=== PATIENT | female | born 1970 | race Caucasian/White ===

== ENCOUNTER 2025-01-07 13:32 | Outpatient (CLI) | payer OTHER, MEDICAID, SELFPAY ==
--- OUTSIDE RECORDS SUMMARY | 2025-01-07 13:37 | XMS_ITS | Data Portability ---
Author Organization [facility] Pasquale MCHUGH Address [address] [facility] [place] [address] Assessment No assessment recorded. Plan of Treatment Reminders Order Date Submit Date Provider Last Modified By Organization Details Last Modified Time Details Appointments None recorded. Lab CMP, serum or plasma 2016 017 [facility], [facility] [place] [facility] [place], [address], [place], [address], 7 12:05:36 lipid panel, serum 2016 017 [facility], [address], [address], [place], [address], 7 12:05:38 CBC 2016 017 [facility], [address], [address], [place], [address], 7 12:05:34 TSH, ultra-sensi tive, serum 2016 017 [facility], [address], [address], [place], [address], 7 12:05:37 HIV 1+2 AB + HIV 1 p24 Ag, qualitative immunoassay , serum 2016 017 [facility], [address], [address], [place], [address], 7 12:03:57 estradiol, serum 2015 016 [facility], [address], [address], [place], [address], 6 06:12:39 Referral behavioral health referral - Stress disorder 2016 017 [email or web address] Gala Santacruz RN-Bc, [address] [place], [address], 7 08:24:34 behavioral health referral - Stress disorder 2015 016 [email or web address] Santacruz RN-Sulaiman, [address] [place], [address], 6 11:12:56 Procedures None recorded. Surgeries None recorded. Imaging MAMMO, screening, bilateral 2015 016 [facility] ([facility]), [address] [place], [address], 6 09:35:35 Medication Orders clonazepam 0.5 mg tablet 2016 017 [address] [id number], [address] [place], [place], [id number], 7 12:02:37 clonazepam 0.5 mg tablet 2015 016 [address] [id number], [address] [place], [place], [id number], 6 12:41:58 Ativan 0.5 mg tablet 2015 016 [email or web address] [id number], [address] [place], [place], [id number], 6 18:48:39 Patient TargetsNo targets recorded. Patient InstructionsNo instructions recorded. Reason for Referral Behavioral Health Referral f or Feeling stressed Stress disorder Referring Physician: Beatriz Mg, Internal Medicine, Encounter Date: 07/09/2016 Behavioral Health Referral f or Mood swings Severe mood swings Stress disorder Referring Physician: Beatriz Mg Internal Medicine, Encounter Date: 01/02/2017 Results Created Date Observation Date Name Description Value Unit Range Abnormal Flag Note LastModifiedBy Organization Detail LastModifiedTime 05/22/20 16 05/23/2016 estra diol, serum estradiol 50.1 pg/mL ADULT FEMAL E: FOLLI CULAR PHASE 12.5 - 166.0 OVULA TION PHASE 85.8 - 498.0 LUTEA L PHASE 43.8 - 211.0 POSTM ENOPA USAL <6.0 - 54.7 PREGN SUSAN 1ST TRIME STER 215.0 - >4300 .0 GIRLS (1-10 YEARS ) 6.0 - 27.0 KOBY ECLIA METHO DOLOG Y Not Available [facility] ([facility]) [address], [place], [address], 05/23/2016 06:12:39 03/26/20 17 04/05/2017 comp bld drug scr w/med rpt ethyl alcohol, enz NEGATI VE gm/dL cutoff :0.020 Not Available [facility] [address] , [place], [address], 04/07/2017 09:07:59 03/26/20 17 04/05/2017 comp bld drug scr w/med rpt amphetamines , ia NEGATI VE NG/mL cutoff :50 Not Available [facility] [address], [place], [address], 04/07/2017 09:07:59 03/26/20 17 04/05/2017 comp bld drug scr w/med rpt barbiturates , ia NEGATI VE ug/mL cutoff :0.1 Not Available [facility] [address] [facility] [place] [place], [address], 04/07/2017 09:07:59 03/26/20 17 04/05/2017 comp bld drug scr w/med rpt benzodiazepi jonathan, ia SEE BELOW: NG/mL cutoff :20 abnormal NEGAT FIDELINA Not Available [facility] [address] [facility] [place], [place], [address], 04/07/2017 09:07:59 03/26/20 17 04/05/2017 comp bld drug scr w/med rpt cocaine/meta bolite,ia NEGATI VE NG/mL cutoff :25 Not Available [facility] [address] [facility] [place], [place], [address], 04/07/2017 09:07:59 03/26/20 17 04/05/2017 comp bld drug scr w/med rpt phencyclidin e, ia NEGATI VE NG/mL cutoff :8 Not Available [facility] [address] [facility] [place], [place], [address], 04/07/2017 09:07:59 03/26/20 17 04/05/2017 comp bld drug scr w/med rpt THC (marijuana) mtb,ia ++POSI TIVE++ NG/mL cutoff :5 abnormal Not Available [facility] [address] [facility] [place], [place], [address], 04/07/2017 09:07:59 03/26/20 17 04/05/2017 comp bld drug scr w/med rpt opiates, ia NEGATI VE NG/mL cutoff :5 Not Available [facility] [address] [facility] [place], [place], [address], 04/07/2017 09:07:59 03/26/20 17 04/05/2017 comp bld drug scr w/med rpt oxycodones, ia NEGATI VE NG/mL cutoff :5 Not Available [facility] [address] [facility] [place], [place], [address], 04/07/2017 09:07:59 03/26/20 17 04/05/2017 comp bld drug scr w/med rpt methadone, ia NEGATI VE NG/mL cutoff :25 Not Available [facility] [address] [facility] [place], [place], [address], 04/07/2017 09:07:59 03/26/20 17 04/05/2017 comp bld drug scr w/med rpt fentanyl, ia NEGATI VE NG/mL cutoff :1.0 Not Available [facility] [address] [facility] [place], [place], [address], 04/07/2017 09:07:59 03/26/20 17 04/05/2017 comp bld drug scr w/med rpt buprenorphin e, ia NEGATI VE NG/mL cutoff :1.0 Not Available [facility] [address] [facility] [place], [place], [address], 04/07/2017 09:07:59 03/26/20 17 04/05/2017 comp bld drug scr w/med rpt propoxyphene , ia NEGATI VE NG/mL cutoff :50 Not Available [facility] [address] [facility] [place], [place], [address], 04/07/2017 09:07:59 03/26/20 17 04/05/2017 comp bld drug scr w/med rpt meperidine, ia NEGATI VE NG/mL cutoff :100 Not Available [facility] [address] [facility] [place], [place], [address], 04/07/2017 09:07:59 03/26/20 17 04/05/2017 comp bld drug scr w/med rpt tramadol, ia NEGATI VE NG/mL cutoff :50 Not Available [facility] [address] [facility] [place], [place], [address], 04/07/2017 09:07:59 03/26/20 17 04/05/2017 comp bld drug scr w/med rpt gabapentin, ia NEGATI VE ug/mL cutoff :1.0 Not Available [facility] [address] [facility] [place], [place], [address], 04/07/2017 09:07:59 03/26/20 17 04/05/2017 comp bld drug scr w/med rpt carisoprodol , ia NEGATI VE ug/mL cutoff :0.5 Not Available [facility] [address], [place], [address], 04/07/2017 09:07:59 03/26/20 17 04/05/2017 comp bld drug scr w/med rpt acetaminophe n, ia NEGATI VE ug/mL cutoff :1.0 Not Available [facility] [address], [place], [address], 04/07/2017 09:07:59 03/26/20 17 04/05/2017 comp bld drug scr w/med rpt other drugs detected NONE Not Available [facility] [address], [place], [address], 04/07/2017 09:07:59 03/26/20 17 04/05/2017 comp bld drug scr w/med rpt declared medications: COMMEN T ATIVA N (MADISON ZEPAM ) CLONA ZEPAM NOT E: THE TESTI NG SCOPE OF THIS PANEL DOES NOT INCLU DE FOLLO WING REPOR [facility]: CALCI UM CARBO ALFREDO VITAM IN D3 CONJU GATED ESTRO GENS ESTRA DIOL LINAC LOTID E MULTI VITAM IN NORET HIDRO NE PRENA LACHELLE VITAM IN NOT E: THE TESTI NG SCOPE OF THIS PANEL DOES NOT INCLU DE SMALL TO MODER ATE AMOUN TS OF THESE REPOR [facility] AT[facility] S: IBUPR OFEN Not Available [facility] [address], [place], [address], 04/07/2017 09:07:59 03/26/20 17 04/05/2017 comp bld drug scr w/med rpt drugs present; not reported COMMEN T THESE FINDI NGS ARE UNEXP ECTED ; NONE OF THE REPOR [facility] AT[facility] S WOULD PRODU CE THIS DRUG SCREE N RESUL T. 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 Not Available [facility] [address] [facility] [place], [place], [address], 04/07/2017 09:07:59 03/26/20 17 04/04/2017 THC,M S,WB/ sp rfx cannabinoid confirmation POSITI VE Not Available [facility] [address] [place] [address], [address], 04/07/2017 09:08:00 03/26/20 17 04/04/2017 THC,M S,WB/ sp rfx tetrahydroca nnabinol(THC ) 3.0 NG/mL Not Available [facility] [address] [place] [address], [place], [address], 04/07/2017 09:08:00 03/26/20 17 04/04/2017 THC,M S,WB/ sp rfx carboxy-THC 30.8 NG/mL Not Available [facility] [address] [place] [address], [address], 04/07/2017 09:08:00 03/26/20 17 04/04/2017 THC,M S,WB/ sp rfx hydroxy-THC NEGATI VE NG/mL Not Available [facility] [address] [place] [address], [address], 04/07/2017 09:08:00 03/26/20 17 04/04/2017 THC,M S,WB/ sp rfx cannabinol NEGATI VE NG/mL Not Available [facility] [address], [place], [address], 04/07/2017 09:08:00 03/26/20 17 04/04/2017 THC,M S,WB/ sp rfx cannabidiol NEGATI VE NG/mL CONFI RMATI ON THRES HOLD: 1.0 NG/ML Not Available [facility] [address], [place], [address], 04/07/2017 09:08:00 Result Notes None recorded. 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 Jerrod H[place] null, [place] - [facility] 6 18:43:53 Constipation 06483658 Active [place] [facility] 6 18:43:53 Abnormal perimenopausal bleeding 191046839 Active Jer[place] [facility] 6 18:43:53 Smoker 37686658 Active Jerrod [place] [facility] 6 18:43:53 Chronic cervicitis 53660538 Active Jerrod [place] [facility] 6 18:43:53 Menopausal syndrome 633126303 Active Jerrod [place] [facility] 6 18:48:38 Feeling stressed 291734371 Active Beatriz Mg MD Attn: Christine taylor,[address] [place], [address], [place] - [facility] 6 12:41:58 Mood swings 77298170 Active 2016 Beatriz Mg MD Attn: Christine taylor,[address] [place], [address], [place] [facility] 7 11:57:57 Anxiety disorder 413884901 Active 2016 Beatriz Mg MD Attn: Christine taylor,[address] [place], [address], [place] [facility] 7 12:00:26 HIV screening Active 2016 Beatriz Mg MD Attn: Christine taylor,[address], [place], [address], [facility] - [facility] 7 12:03:28 Adult health examination Active 2016 Beatriz Mg MD Attn: Christine taylor,[address], [place], [address], [facility] - [facility] 7 12:04:45 Medication monitoring Active 2016 Beatriz Mg MD Attn: Christine taylor,[address], [place], [address], [facility] - [facility] 7 20:05:25 Problem Notes None recorded. Procedures Surgical History Date Name Laterality Status Provider Name and Address Organization Details Recorded Time 01/19/20 16 Hysterectomy completed Leticia Ratliff [facility] 02/15/2016 17:03:51 12/20/19 15 Date of Last Pap Smear completed Leticia Ratliff [facility] 02/15/2016 17:03:22 10/06/19 14 Most Recent Mammogram completed Wendy Coronado [facility] 08/07/2015 15:02:05 10/06/19 13 Dilation and Curettage completed Wendy Coronado [facility] 12/19/2014 15:11:00 10/06/19 08 Tubal Ligation completed Wendy Coronado [facility] 12/19/2014 15:11:00 10/06/19 05 Endometrial Biopsy completed Wendy Coronado [facility] 12/19/2014 15:11:00 10/06/19 04 LEEP completed Wendy Coronado [facility] 12/19/2014 15:11:00 Imaging Results None recorded. Procedure Notes None recorded. Medical Equipment None Reported. Allergies Allergen ID Allergen Name Allergen Category Reaction Reaction Severity Criticality Documentation Date Start Date Code Code System Note Provider Name and Address Organization Details Recorded Time 60021 sertralin e medicatio n diarrhea moderate Not available 07/09/20162015 60284 RxNorm Not Available Not Available Not Available Medications Name Sig Start Date Stop Date Status Note LastModified by Organization Details LastModified Time Prescription - Prior Authorizatio n Request active Not Available Not Available No t Available multivitamin tablet Take 1 tablet every day by oral route. 2015 active Not Available Not Available Not Avai lable ibuprofen 800 mg tablet TAKE 1 TABLET BY MOUTH THREE TIMES DAILY NEEDED FOR CRAMPS 2015 active Not Available Not Available Not Avai lable clonazepam 0.5 mg tablet Take 1 tablet twice a day by oral route. 2016 active Not Available Not Available Not Avai lable Anucort-HC 25 mg suppository Insert 1 suppository twice a day by rectal route as needed for 12 days. active Not Available Not Available No t Available estradiol 0.05 mg/24 hr semiweekly transdermal patch APPLY ONE PATCH TO THE AFFECTED AREA TWICE A WEEK 2016 active Not Available Not Available Not Avai lable acyclovir 800 mg tablet Take 1 tablet every day by oral route. 2017 active Not Available Not Available Not Avai lable Vitamin tablet Take 1 tablet every day by oral route as directed. 2015 active Not Available Not Available Not Avai lable Ativan 0.5 mg tablet Take 2 tablets 3 times a day by oral route. 2015 active Not Available Not Available Not Avai lable norethindron e (contracepti ve) 0.35 mg tablet Take 1 tablet every day by oral route. 2015 active Not Available Not Available Not Avai lable hydrocortiso ne-pramoxine 1 %-1 % rectal cream INSERT 1 GRAM TO THE AFFECTED AREA OF THE RECTUM NEEDED TWICE DAILY active Not Available Not Available Not Available Premarin 0.625 mg/gram vaginal cream Insert 1 g twice a week by vaginal route. 2014 active Not Available Not Available Not Avai lable Wellbutrin XL 150 mg 24 hr tablet, extended release Take 1 tablet every day by oral route. 2014 active Not Available Not Available Not Avai lable calcium 600 mg (as carbonate)-v itamin D3 20 mcg (800 unit) tablet Take 1 tablet twice a day by oral route for 30 days. 2015 active Not Available Not Available Not Avai lable Linzess 145 mcg capsule TAKE ONE CAPSULE BY MOUTH DAILY 2016 active Not Available Not Available Not Avai leydile Malgorzatae 0.45 mg-20 mg tablet active Not Available Not Available Not Available Vitals Date Recorded Body mass index (BMI) Body weight Body height Systolic blood pressure Diastolic blood pressure Provider Name and Address Organization Details Last Updated DateTime 02/15/2016 17.6 kg/m2 79647.86 752 g 157.48 cm 98 mm[Hg] 66 mm[Hg] Leticia Ratliff MA [facility] 6 17:05:41 Date Recorded Body weight Body height Body mass index (BMI) Systolic blood pressure Diastolic blood pressure Provider Name and Address Organization Details Last Updated DateTime 05/22/2016 17319.68 278 g 157.48 cm 17.2 kg/m2 138 mm[Hg] 82 mm[Hg] Leticia Ratliff MA [facility] 6 16:00:11 Date Recorded Body mass index (BMI) Body height Body weight Body temperature Systolic blood pressure Diastolic blood pressure Provider Name and Address Organization Details Last Updated DateTime 6 16.8 kg/m2 157.48 cm 57417.4 9804 g 98 [degF] 126 mm[Hg] 78 mm[Hg] Chikisandrarob davion You [facility] 6 11:43:41 Date Recorded Body height Body weight Body mass index (BMI) Heart rate Body temperature Oxygen saturation Oxygen saturation in Arterial blood by Pulse oximetry Systolic blood pressure Diastolic blood pressure Provider Name and Address Organization Details Last Updated DateTime 6 157.48 cm 77390.7 4 g 16.5 kg/m2 68 /min 97.9 [degF] 99 % 99 % 116 mm[Hg] 80 mm[Hg] Azul Ortega MA [facility] 6 12:19:18 Date Recorded Body height Body weight Body mass index (BMI) Heart rate Body temperature Oxygen saturation Oxygen saturation in Arterial blood by Pulse oximetry Systolic blood pressure Diastolic blood pressure Provider Name and Address Organization Details Last Updated DateTime 7 157.48 cm 20071.5 6 g 17.3 kg/m2 81 /min 97.7 [degF] 98 % 98 % 120 mm[Hg] 76 mm[Hg] Whitney Douglass MA [facility] 03/30/201 7 10:51:19 Social History Question Answer Notes LastModified by Organizat ion Details LastModified Time Tobacco Smoking Status Current Every Day Smoker Wendy Coronado, [facility], [place] - [facility] 12/19/2014 15:11:00 Do You Have An Advance Directive? No Information not available 08/07/2015 What Is Your Level Of Alcohol Consumption? Occasional Information not available 08/07/2015 Is Blood Transfusion Acceptable In An Emergency? Yes Information not available 08/07/2015 What Is Your Level Of Caffeine Consumption? Heavy Information not available 08/07/2015 How Much Tobacco Do You Chew? None Information not available 08/07/2015 Are You Currently Employed? No Information not available 08/07/2015 What Type Of Diet Are You Following? REGULAR Information not available 08/07/2015 Which Illicit Or Recreational Drugs Have You Used? 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 With Others Information not available 08/07/2015 How Many Children Do You Have? 2 Information not available 08/07/2015 Performs Monthly Self-breast Exam? Yes Information no t available 08/07/2015 Do You Use Protection During Sex? No Information not available 08/07/2015 What Is Your Relationship Status? Information not available 08/07/2015 Seat Belts Used Routinely Yes Information not available 08/07/2015 Are You Sexually Active? Yes Information not available 08/07/2015 At What Age Did You Start Smoking Tobacco? 15 Information not available 08/07/2015 How Much Tobacco Do You Smoke? 1 PPD Information not available 08/07/2015 General Stress Level Low Information not available 08/07/2015 Do You Use Sunscreen Routinely? No Information not available 08/07/2015 How Many Years Have You Smoked Tobacco? 25 Information not available 08/07/2015 Sex: Unknown Functional Status Question Answer Note LastModified by Organization D etails LastModified Time What is your exercise level? Moderate Information not available 08/07/2015 Mental Status None recorded. Family History Relationship Description Onset Age of this Age Resolved Age Notes LastModified by Organization Details LastModified Time Father Diabetes mellitus [email or web address] Not available 2015 18:44:00 Father Disorder of lung [email or web address] Not available 2015 18:44:00 Father History of prostatism [email or web address] Not available 05/22 18:44:00 Mother Disorder of lung [email or web address] Not available 2015 18:44:00 Medical History Condition Response Heart Problems N Other N High Blood Pressure N Breast Cancer N Thyroid Problems N Kidney or Bladder Problems N GI Problems N Lung Disease N Depression N Blood Clots N Acne N Breast Problem N Eating Disorder N Anemia N Anesthesia Complications N Headaches/Migraines N Anxiety Disorder Y Diabetes N Ovarian Cancer N Muscle, Joint, or Bone Problems N Blood Transfusions N Arthritis N Seizures/Epilepsy N Polyps N Infertility N Acid Reflux (GERD) N Cancer N Stroke N Abuse/Domestic Violence N Asthma N Endometriosis N High Cholesterol N Hepatitis N Liver Disease N Heart Disease N Fibromyalgia N Pre-Eclampsia N Hypertension N Osteoporosis N Kidney Disease N Gynecological History Statement/Question Response Abnormal Pap Y Flow Heavy On BCP's at Conception? N STIs/STDs Y HPV Vaccine N Most Recent Mammogram 10/06/2013 Age at Menarche 12 Current Control Method Hysterectom y Age at First Child 20 Frequency of Cycle (Q days) 08 Sexually Active? Y Menses Monthly N Date of Last Pap Smear 12/19/2014 Sexual Problems? N LMP Approximate Desired Control Method None Obstetrics History GPAL:G 5 P 1 1 3 2 Type Value Multiple Births 0 Full Term 1 Induced 0 Spontaneous 3 Premature 1 Living 2 Ectopics 0 Total 5 Past Encounters Encounter ID Performer Location Encounter Start Date Encounter Closed Date Diagnosis/Indication Diagnosis SNOMED-CT Code Diagnosis ICD10 Code Diagnosis Note [id number] Kristi Jimenez ([employer]) [address] [place] [address] 12/19/2014 14:40:03 12/19/2014 16:04:20 Screening for malignant neoplasm of breast 301331995 Gynecologi c examination 16062260 Constipation 81587767 Abnormal perimenopausal bleeding 166645558 Smoker 26390219 Chronic cervicitis 74798345 [id number] Micah Jimenez ([employer]) [address] [place] [address] 08/07/2015 14:11:28 08/07/2015 16:21:46 Abnormal perimenopausal bleeding 550588063 N95.8 Pt was given OCPs and Depo without resolution of bleeding [id number] Micah Jimenez ([employer]) [address] [place] [address] 09/04/2015 11:51:31 09/04/2015 14:18:15 Postoperative visit 480441220 Z09 Post-op D & C with Novasure endometria l ablation [id number] Micah Jimenez ([employer]) [address] [place] [address] 02/15/2016 15:42:22 02/15/2016 18:40:49 Menopausal syndrome 491438607 N95.9 Postoperative visit 1836 30709 Z09 Post-op D & C with Novasure endometria l ablation [id number] Jaynayumi Jimenez ([employer]) [address] [place] [address] 05/22/2016 15:26:03 05/24/2016 17:37:15 Menopausal syndrome 940792387 N95.9 Return for medication check in 8 weeks. Screening mammography 24 734583 Z12.31 [id number] Trell Jimenez (Adult Med) [address] [place] [address] 07/09/2016 10:43:47 07/09/2016 12:45:55 Feeling stressed 782231807 Z73.3 [id number] MD Tony Gan (Adult Med) [address] [place] [id number] 08/20/2016 11:46:04 08/20/2016 13:10:50 Feeling stressed 828304797 Z73.3 Constipation 99831840 K5 9.00 Smoker 95859023 F17.248 [id number] MD Tony Gan (Adult Med) [address] [place] [id number] 01/02/2017 10:36:32 01/02/2017 12:11:12 Mood swings 90566106 R45.86 Anxiety disorder 2558275 06 F41.9 HIV screening 170983565 Z11.4 Adult heal th examination 517122719 Z00.00 Health Concerns Section Related Observation LastModified by Organization Detai ls LastModified Time None Recorded Concern Status LastModified by Organization Details LastModified Time None Recorded Advance Directives Directive N: Payers Encounter Date Sequence Insurance Name Policy Number Policy Truong Covered Member ID Truong Member ID Guarantor Name 02/15/2016 1 [place] [id number] Janice Gorby [id number] Janice Mccormack ([place]) 02/15/2016 2 [place] Janice Mccormack [id number] Janice Mccormack ([place]) 05/22/2016 1 [place] [id number] Janice Gorby [id number] Janice Mccormack ([place]) 05/22/2016 2 [place] Janice Mccormack [id number] Janice Mccormack ([place]) 07/09/2016 1 [place] [id number] Janice Gorby [id number] Janice Mccormack ([place]) 07/09/2016 2 [place] Janice Mccormack [id number] Janice Mccormack ([place]) 08/20/2016 1 [place] [id number] Janice Gorby [id number] Janice Mccormack ([place]) 08/20/2016 2 [place] Janice Mccormack [id number] Janice Mccormack ([place]) 01/02/2017 1 [place] [id number] Janice Gorby [id number] Janice Mccormack ([place]) 01/02/2017 2 [place] Janice Mccormack [id number] Janice Colleir) Notes Date Note Type Note Provider Name and Address Organization Details Recorded Time 02/15/2016 text/html Post-OpReported bypatient.Associat ed Symptoms:incision healing well; no fatigue; normal appetite; normal bowel function; no constipation; no nausea; no emesis; pain improving; no pain; no fever; no bleeding; no lower extremity edema/pain; no dysuria/urinary symptoms Micah diaz [facility] 02/15/2016 18:40:30 05/22/2016 text/html Anxiety/Depressi on Reported bypatient.Severity :denies suicidal ideations; able to maintain relationships; does not interfere with activities of daily living Duration:cannot identify Onset/Timing:canno t identify Context:no major life stressors Associated Symptoms:denies homicidal ideations; no significant weight gain; no significant weight loss; no visual/auditory hallucinations; no delusions; no shortness of breath; mood good; no anxiety; no crying spells; no panic; no isolation; sleeping well; appetite good; energy good; no apathy; maintaining functionalityNotes :Experiencing emotional swings with trigger events. Elements of acrophobia also. Doesn't appear to have obvious features of depression. Jerrod diaz [facility] 05/22/2016 18:49:22 07/09/2016 text/html Has increased stress which has worsened since her hysterectomy in 01/2016. Was on sertraline x2 weeks due to side effects. Has been on lorazepam 0.5mg/d which reduced her stress Beatriz Mg MD Attn: Accounting[address] [place], [address], [facility] 07/09/2016 12:42:07 08/20/2016 text/html No new complaint s. Feeling much better Beatriz Mg MD Attn: Accounting[address] [place], [address], [facility] 08/20/2016 13:09:57 01/02/2017 text/html No new complaint s. Some benefit from clonazepam. 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 Status 08/07/20 15 1 CLOSED Fetus Data First Name Last Name Admitted to NICU Weight (g) Sex Living Outcome Pediatric Complications Fetus ID Race Codes Race Delivery Type 2324.65 9 M Prematur e [id number] Vaginal Dino Calculation Initial Dino Date Initial Exam Date Initial Exam Provider Initial Ultrasound Date Last Menstrual Period Date Ultra Sound Weeks Gestation 0 Eighteen To Twenty Week Dino Update Ultra Sound Date Fundal Height At Umbil Quickening Date Ultra Sound Latest Weeks Gestation Final Dino Confirmed By Final Dino Confirmed Date Final Dino Date Ultra Sound Latest Days Gestation 0 0 Menstrual History Last Menstrual Date Menses Monthly On Bcp Conception Prior Menses Frequency Hcg Plus Date Menarche Onset Age Delivery Information Delivery Date Delivery Type Labor Anesthesia Weeks Gestation Incision Type Labor Labor Length Hrs Delivered By Post Complications Tubal Sterilization Discharge Date Comments 1 Regional- idural 36 Discharge Information Feeding Method Contraceptive Method Maternal HG B and HCT Levels Ob Episode Information Episode Created Date Number of Fetuses Patient Bloodtype Patient rh Status Prepregnancy Weight lbs Domestic Partner Domestic Partner Phone Father Name Hardboard Supervisor Status 08/07/20 15 1 CLOSED Fetus Data First Name Last Name Admitted to NICU Weight (g) Sex Living Outcome Pediatric Complications Fetus ID Race Codes Race Delivery Type 2863.29 95 M Full Term [id number] Vaginal Dino Calculation Initial Dino Date Initial Exam Date Initial Exam Provider Initial Ultrasound Date Last Menstrual Period Date Ultra Sound Weeks Gestation 0 Eighteen To Twenty Week Dino Update Ultra Sound Date Fundal Height At Umbil Quickening Date Ultra Sound Latest Weeks Gestation Final Dino Confirmed By Final Dino Confirmed Date Final Dino Date Ultra Sound Latest Days Gestation 0 0 Menstrual History Last Menstrual Date Menses Monthly On Bcp Conception Prior Menses Frequency Hcg Plus Date Menarche Onset Age Delivery Information Delivery Date Delivery Type Labor Anesthesia Weeks Gestation Incision Type Labor Labor Length Hrs Delivered By Post Complications Tubal Sterilization Discharge Date Comments 1 None 40 Discharge Information Feeding Method Contraceptive Method Maternal HG B and HCT Levels
--- OUTSIDE RECORDS SUMMARY | 2025-01-07 13:37 | XMS_ITS ---
Author Name [facility] Address [address], [place] Phone Organization [facility] Address [address] [place] [address] Phone Care Team Providers Care Outside Contractor Sales Name Role Phone [facility] Unavailable [phone] MARKUS PUTNAM Unavailable ANTONIOARNULFO Rangel Unavailable ALLERGIES, ADVERSE REACTIONS AND ALERTS Allergy Name Allergy Date Allergy Status Allergy Severity Allergy Reaction NO KNOWN DRUG ALLERGIES MEDICATIONS RxNorm Brand Name Prescription Ordered Value Order Unit Start Date Date Status Fill Status Indications [id number] albutero l sulfate 0.63 mg/3 mL solution for nebuliza tion SIG: albuterol sulfate 0.63 mg/3 mL inhalation solution for nebulization, 0 days, Dispense #3 Milliliter, 0 Refills, Directions: d 3 solution for nebuliza tion 2022 Current [id number] Breztri Aerosphe re 160-9-4. 8 mcg/actu ation HFA aerosol inhaler SIG: Breztri Aerosphere 160-9-4.8 mcg/actuation inhalation HFA aerosol inhaler, 0 days, Dispense #5.9 Gram, 0 Refills, Directions: d 5.9 HFA aerosol inhaler 2022 Current [id number] Tamiflu 75 mg capsule SIG: Tamiflu 75 mg oral capsule, 5 days, Dispense #10 Capsule, 0 Refills, Directions: Take 1 oral capsule 2 times a day 10 capsule 2022 023 Historic [id number] benzonat ate 100 mg capsule SIG: benzonatate 100 mg oral capsule, 7 days, Dispense #21 Capsule, 0 Refills, Directions: Take 1 oral capsule Q8h a day PRN 21 capsule 2022 Current [id number] nystatin 100,000 unit/mL suspensi on SIG: nystatin 100,000 unit/mL oral suspension, 0 days, Dispense #60 Milliliter, 0 Refills, Directions: Swish 5mL in mouth for as long as possible and then swallow- 4 times daily for 7 days 60 suspensi on 2022 Current [id number] predniso ne 10 mg tablet SIG: prednisone 10 mg oral tablet, 7 days, Dispense #14 Tablet, 0 RefillsDirect ions: Take 1 oral tablet 2 times a day 14 tablet 2022 023 Historic [id number] IBU 800 mg tablet SIG: IBU 800 mg oral tablet, 10 days, Dispense #30 Tablet, 0 Refills, Directions: Take 1 oral tablet 3 times a day as needed for pain 30 tablet 2023 Current [id number] amoxicil juancho-pot clavulan ate 875-125 mg tablet SIG: amoxicillin-p ot clavulanate 875-125 mg oral tablet, 7 days, Dispense #14 Tablet, 0 Refills, Directions: Take 1 oral tablet 2 times a day 14 tablet 2023 Current [id number] azithrom ycin 250 mg tablet SIG: azithromycin 250 mg oral tablet, 5 days, Dispense #6 Tablet, 0 Refills, Directions: Take 2 tablets now and 1 tablet on days 2-5 6 tablet 2024 025 Historic [id number] benzonat ate 200 mg capsule SIG: benzonatate 200 mg oral capsule, 7 days, Dispense #21 Capsule, 0 Refills, Directions: Take 1 oral capsule 3 times a day 21 capsule 2024 025 Historic PROBLEMS Problem Code Problem Description Problem Status Problem Da te Problem End Date 86628173-Joohcic obstructive lung disease Chronic obstructive lung disease Current 11/16/2022 B37.9-CANDIDIASIS, UNSPECIFIED CANDIDIASIS, UNSPECIFIED Chronic 01/19/2023 K13.79-OTHER LESIONS OF ORAL MUCOSA OTHER LESIONS OF ORAL MUCOSA Chronic 01/19/2023 R07.0-PAIN IN THROAT PAIN IN THROAT Chronic 01/19/2023 Z71.9-COUNSELING, UNSPECIFIED COUNSELING, UNSPECIFIED Chronic 01/19/2023 95517508-Ltaos disorder Sleep disorder Current 06/25/2024 PROCEDURES Procedure Description Date Notes NO PROCEDURES PERFORMED ASSESSMENTS Assessment None PLAN OF TREATMENT Assessment Planned Activity LOINC Planned Yariel e None CONSULTATION NOTE Note Author Date None HISTORY AND PHYSICAL NOTE Note Author Date None PROGRESS NOTE Note Author Date None DISCHARGE SUMMARY Note Author Date None CHIEF COMPLAINT AND REASON FOR VISIT FUNCTIONAL STATUS Functional or Cognitive Find ing None MENTAL STATUS Cognitive Finding None ENCOUNTERS Encounter Type Provider Diagnoses Start Date Location None SOCIAL HISTORY Social Status Observation Never Smoker Sex:Female CARE TEAM INFORMATION Outside Contractor Sales Provider ID Role Location Phone [facility] [place] MARKUS PUTNAM [phone] NURSE PRACTITIONER [address] [facility] [address], [place] [address] ARNULFO MELCHOR [phone] NURSE PRACTITIONER [facility], [place] [address]
--- OUTSIDE RECORDS SUMMARY | 2025-01-07 13:37 | XMS_ITS | Clinical Summary ---
Author Organization [facility] Address [address] [place] [address] Care Team Providers Care Tag Press Operator Name Role Phone Unavailable Primary Care Provider Unavailabl e Source Comments [facility] [address] [facility],non-owned Affiliates and Associated Physician Practices is amultiple site organization consisting of ambulatory clinics and hospital sitesin [place], [place], [place] and [place]. This disclosure is being madepursuant to the Care Everywhere program and may not contain all information available regarding this patient. Last updated 18.[facility] [address] [facility] Medications * Be aware that medications may not be up to date on this document. Alwaysverify current medications with the patient. Medication Sig Dispensed Refills Start Date End Date Status acetaminophen (TYLENOL) 500 MG tablet Take 1 tablet by mouth every 4 hours as needed for Fever or Pain Maximum allowable Acetaminophen amount = 4 Grams (4000 mg) / 24 hours. 45 tablet 05/12/2019 Active ibuprofen (MOTRIN) 600 MG tablet Take 1 tablet by mouth every 6 hours as needed for Pain 45 tablet 05/12/2019 Active cyclobenzaprine (FLEXERIL) 10 MG tablet Take 1 tablet by mouth 3 times daily as needed for Muscle Spasms 30 tablet 05/12/2019 Active lidocaine (LIDODERM) 5 % patch Apply 1 patch to skin once daily 15 patch 05/12/2019 Active Immunizations Name Administration Dates Next Due TDAP (7yrs+) 05/12/2019 Social History Tobacco Use Types Packs/Day Years Used Date Smoking Tobacco: Every Day Cigarettes Smokeless Tobacco: Never Tobacco Cessation:Ready to Q uit: No; Counseling Given: Yes Alcohol Use Standard Drinks/Week Comments Yes 0 (1 standard drink = 0.6 oz pur e alcohol) rarely Sex and Gender Information Value Date Recorded Sex Assigned at Not on file Gender Identity Not on file Sexual Orientation Not on file Last Filed Vital Signs Vital Sign Reading Time Taken Comments Blood Pressure 140/77 05/12/2019 4:38 PM CDT Pulse 82 05/12/2019 4:38 PM CDT Temperature 37.1 C (98.7 F) 05/12/2019 2:11 PM CDT Respiratory Rate 18 05/12/2019 4:38 PM CDT Oxygen Saturation 99% 05/12/2019 4:38 PM CDT Inhaled Oxygen Concentration - - Weight 40.4 kg (89 lb) 05/12/2019 2:11 PM CDT Height 165.1 cm (5' 5 ) 05/12/2019 2:11 PM CDT Body Mass Index 14.81 05/12/2019 2:11 PM CDT Plan of Treatment Health Maintenance Due Date Last Done Comments COLOGUARD (AGES 45-75) - COL ON CA SCREENING 1971 COLON MONITORING 1971 COLONOSCOPY - COLON CA SCREENING 1971 CT COLONOGRAPHY - COLON CA SCREENING 1971 Colorectal Cancer Screening 1971 FIT - COLON CA SCREENING 1971 FLEX SIG - COLON CA SCREENING 1971 LIPID TESTING 1971 MAMMOGRAM 1971 PAP SMEAR 1971 HEPATITIS C SCREENING 12/25/1989 HEPATITIS B VACCINE (1 of 3 - 19+ 3-dose series) 12/29/1990 PNEUMOCOCCAL VACCINE (1 of 2 - PCV) 12/29/1990 PNEUMOCOCCAL VACCINE 50+ (1 of 1 - PCV) 12/29/2021 ZOSTER VACCINE (1 of 2) 12/29/2021 COVID-19 VACCINE ( - 2023-2 5 season) 2024 DEPRESSION SCREENING 10/06/2024 INFLUENZA VACCINE (Season Ended) 2025 DTAP/TDAP/TD VACCINES (2 - T d or Tdap) 05/12/2029 05/12/2019 HIV SCREENING Completed 05/12/2019 HIB VACCINE Aged Out No longer eligi ble based on patient's age to complete this topic HPV VACCINE Aged Out No longer eligi ble based on patient's age to complete this topic MENINGOCOCCAL (Group B) VACC INE SHARED DECISION-MAKING Aged Out No longer eligibl e based on patient's age to complete this topic MENINGOCOCCAL GROUPS A/C/Y/W VACCINE Aged Out No longer eligible b ased on patient's age to complete this topic Procedures Procedure Name Priority Date/Time Associated Diagnosis Comments HIV-1 HIV-2 ANTIGEN/ANTIBODY STAT 05/12/2019 2:38 PM CDT from Last 3 Months or Most Recently Relevant to Health Maintenance Results * HIV-1 HIV-2 ANTIGEN/ANTIBODY (05/12/2019 2:38 PM CDT) HIV Antigen/Antibod y 1 & 2 Non-reacti ve Non-react belinda 05/12/2019 3:14 PM CDT [facility] Comment: Neither HIV-1 p24 Antigen nor HIV-1/HIV-2 Antibodies are detected. Blood BLOOD SPECIMEN / Unknown Venipuncture / Unknown 05/12/2019 2:38 PM CDT 05/12/2019 2:38 PM CDT Robert Hussein MD LAB - HEMATOLOGY ORD ERABLES Performing Organization Address City/State/[facility] Co de Phone Number [facility] [address] [phone] from Last 3 Months or Most Recently Relevant to Health Maintenance
--- OUTSIDE RECORDS SUMMARY | 2025-01-07 13:37 | XMS_ITS | Patient Health Record ---
Author Organization [facility] Address [address] [place] [address] Care Team Providers Care Hand Binder Cutter Name Role Phone JOSE ALBERTO TYSON Primary Care Provider Reason For Referral No Information Medications Medication SIG (Take, Route, Frequency, Duration) Notes Start Date End Date Status Oseltamivir Phosphate 75 MG 1 capsule Orally Twice a day for 5 day(s) 12/27/2019 Not-Taking Pramoxine-HC 1-1 % 1 application Externally Three times a day Not-Taking Atorvastatin Calcium 20 MG 1 tablet every evening Orally Once a day for 90 days 07/02/2019 Active buPROPion HCl ER (Smoking Det) 150 mg 1 tablet Orally Once a day for 3 days then 1 tablet twice a day for 30 days Active Social History Tobacco use other than smoking: Question Answer Notes Are you an other tobacco user? No Problems Problem Type SNOMED Code ICD Code Onset Dates Problem Status W/U Status Risk Notes Problem [id number] Mixed hyperlipidemia (E78.2) Active confirmed Problem 39710584 Nicotine dependence, cigarettes, uncomplicated (F17.210) Active confirmed Problem 76962133 Centrilobular emphysema (J43.2) Active confirmed Problem 537380371 Cachexia (R64) Active confirmed Problem 926792949 Encounter for general adult medical examination with abnormal findings (Z00.01) Active confirmed Problem 60856473 Smoker (F17.200) Active confirmed Problem 57747984 IBS (irritable bowel syndrome) (K58.9) Active confirmed Problem 611473745 Protein-calorie malnutrition, severe (E43) Active confirmed Problem 229530150 Protein-calorie malnutrition, moderate (E44.0) Active confirmed Problem 643787275 Stress and adjustment reaction (F43.29) Active confirmed Problem 310452821 Menopause (Z78.0) Active confirmed Problem 82019224 Anxious mood as adjustment reaction (F43.22) Active confirmed Problem 830951659 Irritable bowel syndrome with constipation (K58.1) Active confirmed Problem 520443090 Lung nodule < 6c m on CT (R91.1) Active confirmed Problem 88660596 External hemorrhoid, bleeding (K64.4) Active confirmed Plan Of Treatment Pending Test Test Name Order Date Chest X-ray PA and lateral 10/24/2020 Thyroid Panel With TSH 04/18/2016 Thyroid Panel With TSH 10/24/2020 Hemoglobin A1c 10/24/2020 CBC With Differential/Platelet 6 CBC With Differential/Platelet Lipid Panel-L 08/02/2019 Lipid Panel-L 04/18/2016 Lipid Panel-L 10/24/2020 Comp. Metabolic Panel (14) 10/24/2020 Comp. Metabolic Panel (14) 04/18/2016 Comp. Metabolic Panel (14) 08/02/2019 Insurance Providers Payer Name Payer Address Payer Phone Subscriber Number Group Number Insured Name Patient Relationship to Insured Coverage Start Date Coverage End Date [employer] [address] [address] [place] [address] [phone] [id number] TOURE BRAD Self - patient is the insured 9 Medical (General) History Medical History History ICD Code Constipation/obstipation Cachexia Acute labrynthitis breast mass - benign calcium deposit Right lungmass - CT and PET by Dr Tobias - PET +/ Needle Bx neg centrilobular emphysema Surgical History Surgery Date(Month/Year) UTERINE ABLATION 08/2015 [facility] - BSO 01/2016 LUNG BIOPSY 07/2019 Hospitalization History Reason Date(Month/Year) POST SURGICAL COMPLICATIONS 01/2016
--- OUTSIDE RECORDS SUMMARY | 2025-01-07 13:37 | XMS_ITS | Clinical Summary ---
Author Organization [facility] Address [address] [place] [address] Care Team Providers Care Product Introduction Manager Name Role Phone Weston Danielson MD Primary Care Provider [phone] Allergies No known active allergies Medications estradiol (CLIMARA) 0.05 mg/24 hr patch Apply 1 Patch to skin as directed twice weekly. Active norethindrone, Contraceptive, (DESTINEY-BE) 0.35 mg Tablet Take by mouth daily. Active linaCLOtide (LINZESS) 145 mcg capsule Take 145 mcg by mouth daily before breakfast. Active lubiprostone (AMITIZA) 8 mcg Capsule Take by mouth 2 times daily with meals. Active buPROPion HCl (WELLBUTRIN SR) 150 mg Sustained Release 12 hour tablet Take 150 mg by mouth 2 times daily. Active busPIRone (BUSPAR) 10 mg tablet Take 10 mg by mouth 2 times daily. Active varenicline (CHANTIX STARTING MONTH BOX) 0.5 mg (11)- 1 mg (42) tablets in a dose pack Take by mouth Take as directed on package. . Active varenicline (CHANTIX CONTINUING MONTH BOX) 1 mg Tablet Take 1 mg by mouth 2 times daily. Active Active Problems Problem Noted Date Diagnosed Date Constipation 06/02/2019 Obstipation 06/02/2019 Cachexia 06/02/2019 Inner ear inflammation 06/02/2019 Mass of breast 06/02/2019 Overview (06/02/2019): Benign Family History Medical History Relation Name Comments Colon Cancer Father Lung Cancer Father COPD Mother Lung Cancer Mother Relation Name Status Comments Father (Age 65) Mother (Age 65) Social History Tobacco Use Types Packs/Day Years Used Date Smoking Tobacco: Every Day Cigarettes Smokeless Tobacco: Never Comments:Thinking about it Alcohol Use Standard Drinks/Week Comments Not Currently 0 (1 standard drink = 0.6 oz pur e alcohol) Comments Unknown Sex and Gender Information Value Date Recorded Sex Assigned at Not on file Legal Sex Female 10:09 PM CDT Gender Identity Not on file Sexual Orientation Not on file Last Filed Vital Signs Vital Sign Reading Time Taken Comments Blood Pressure 112/68 07/20/2019 12:00 PM CDT Pulse 65 07/20/2019 12:00 PM CDT Temperature 36.7 C (98 F) 07/20/2019 7:06 AM CDT Respiratory Rate 16 07/20/2019 7:06 AM CDT Oxygen Saturation 97% 07/20/2019 12:00 PM CDT Inhaled Oxygen Concentration - - Weight 41.3 kg (91 lb) 07/20/2019 7:06 AM CDT Height 154.9 cm (5' 1 ) 07/20/2019 7:06 AM CDT Body Mass Index 17.19 07/20/2019 7:06 AM CDT Plan of Treatment Health Maintenance Due Date Last Done Comments PNEUMOCOCCAL VACCINE 0-49 YEARS (1 of 2 - PCV) 978 HEPATITIS B VACCINES (1 of 3 - 19+ 3-dose series) 12/05 PAP SMEAR 12/29/2001 BREAST CANCER SCREENING 2011 COLORECTAL SCREENING 12/29/2016 Colorectal Cancer Screening 12/29/2016 FIT-DNA Q 3 years 12/29/2016 FIT/FOBT Q 1 year 12/29/2016 Flex Sig/CT Colonography Q 5 years 12/29/2016 ZOSTER VACCINE (1 of 2) 12/29/2021 INFLUENZA VACCINE (#1) 2024 DTAP/TDAP/TD VACCINES (2 - Td or Tdap) 05/12/2029 Insurance [id number] [id number] Care Teams Product Introduction Manager Relationship Specialty Start Date End Date Weston Danielson MD [address] [place] [address] PCP - General Edge Stripper 07/08/19
--- OUTSIDE RECORDS SUMMARY | 2025-01-07 13:38 | XMS_ITS | Data Portability ---
Author Organization [place] - [facility] [employer] Main Office Address [address] [place] [address] Assessment Encounter Date Assessment Date Assessment LastModified by Organization Details LastModified Time 06/02/2023 06/02/2023 WWE- declines, n o longer wants to do as she is s/p hysterectomy Cscope- cologuard ordered 10/2022- encouraged her to get this done Mammo- 12/2022 WEA- 12/07/2021 LDCT- ordered by pulm Call office if worse, ER if life threatening illness RTC 6 months and PRN, due for annual wellness at next visit She voices understanding of plan and agrees [email or web address] Not available 06/02/2023 15:53:21 07/27/2024 07/27/2024 Assessment: Nicotine smoke: 1.5 ppd [id number] = 52.5 pack years Mild COPD Bibasilar atelectasis Plan: The following were reviewed and explained to the patient: [facility] hospitalization 01/16/23 - 01/17/23 for pneumonia Chest 1 view 01/16/[address] CT 11/23/21 JAN calcified granuloma, bibasilar atelectasis, no nodules Chest CT 02/27/23 emphysema, bilateral infiltrates Chest CT 04/09/23 improved nodular infiltrates Chest CT 12/15/23 3 mm RLL nodule, 6 mm RUL nodule Lab data 02/27/23 multiple environmental allergies PFT 02/27/23 FEV1 1.86 L (80%), DLCO 53%, DLCO/VA 49% Incentive spirometer x 5 minutes every 2 hours while awake to reverse and prevent further atelectasis. Repeat chest CT and PFT one week before return. The [place] [employer] recommends annual screening for lung cancer with low-dose computed tomography (LDCT) for people aged 50 to 80 years old who smoke or formerly smoked and have a 20-year or greater pack-year history. Screening is no longer discontinued even when a person has not smoked for 15 years. General information on COPD was covered. COPD affects breathing. Self-care skills such as not smoking, using medications as prescribed, oxygen therapy, and knowing when to contact the healthcare provider are covered. Diaphragmatic breathing and pursed lip breathing are explained and demonstrated. Positive lifestyle changes are introduced. Following these self-care skills will help in the management of COPD so the patient can stay out of the hospital. Advised to continue not to smoke. Continue albuterol HFA as needed. The patient does not know how to accurately administer the inhaler. Today, the patient was shown how to take this medication. The proper technique for delivering this medication was instructed. The patient expressed a clear understanding and demonstrated back how to use this medication. Without the proper technique, the patient will not reap the benefits of this medication as the contents will not reach the lower airways as intended to be. Adherence to therapy is advocated. Nonadherence may lead to treatment failure, further progression of the condition, and other complications. Hospitals admissions are often the result of individuals not taking prescription medications accurately. Alternatively, greater adherence to medication regimens have shown to lower rates of hospitalization and decrease total medical costs in patients with chronic medical conditions. Advocated influenza vaccination annually and pneumonia vaccination BRIT. Encouraged patient to adjust caloric intake to maintain/achieve ideal body weight, emphasizing on fruits, vegetables, whole grains, and fat-free or low-fat products. These include lean meats, poultry, fish, beans, eggs, and nuts and foods that are low in saturated fats, trans-fats, cholesterol, salt (sodium), and glycemic index. Stressed the importance of regular exercise up to the patient's capacity limits. In this case, we recommend 20 min daily walking, 2 days a week of resistance training. Patient to monitor BP daily and bring records to PCP for further management. Follow-up: 6 months, January 2025 [email or web address] Not available 07/27/2024 14:52:55 Plan of Treatment Reminders Order Date Submit Date Provider Last Modified By Organization Details Last Modified Time Details Appointments Any 15 2024 01:15P Lexie flores MD Not available Not available Not available Any 2024 01:30P Lexie Gottlieb MD Not available Not available Not available Lab CBC w/ auto diff 2023 024 [facility], [address], [place], [address], 08/21/2024 13:30:56 CMP, serum or plasma 2023 024 [facility], [address], [place], [address], 06/23/2024 15:18:28 lipid panel, serum 2023 024 [facility], [address], [place], [address], 08/25/2024 09:16:52 TSH + free T4, serum 2023 024 [facility], [address], [place], [address], 06/23/2024 15:18:28 noninvasi ve colorecta l cancer DNA + occult blood screening , QL, stool 2023 024 [facility] (Cologuard Orders Only), [address], [address], [place], [address], 12/27/2024 08:26:16 hepatitis C virus Ab, serum 2023 024 [facility], [address], [place], [address], 08/25/2024 09:16:52 HbA1c (hemoglob in A1c), blood 2023 024 [facility], [address], [place], [address], 08/25/2024 09:16:52 CBC w/ auto diff 2023 024 [email or web address] [facility] (Lab), [address] [place], [address], 12/08/2023 15:02:57 CMP, serum or plasma [address] (Lab), [address] [place], [address], 12/08/2023 15:02:57 lipid panel, serum [address] (Lab), [address] [place], [address], 06/14/2024 09:11:51 TSH + free T4, serum [address] (Lab), [address] [place], [address], 12/08/2023 15:02:58 HbA1c (hemoglob in A1c), blood [address] (Lab), [address] [place], [address], 06/14/2024 09:11:51 Referral None recorded. Procedures None recorded. Surgeries None recorded. Imaging LDCT, chest, for lung cancer screening - Please call patient to schedule. 2023 0[facility] [address] [place] [address] [address] [address], [place], [address], 12/27/2024 17:50:40 MAMMO, screening , digital, bilateral - Please call patient to schedule. 2023 024 [email or web address] [facility] ([facility]), [address] [place], [address], 07/22/2024 20:48:14 XR, wrist + hand [email or web address] ([facility]), [address] [place], [address], 10/31/2023 17:47:54 Medication Orders valacyclo vir 500 mg tablet 2024 025 [facility] #48769, [address] [place], [place], [id number], 12/13/2024 14:33:48 hydroxyzi ne HCl 25 mg tablet 2024 025 [facility] #75004, [address] [place], [place], [id number], 12/13/2024 14:33:51 hydrocort isone 2.5 % topical cream with perineal applicato r 2024 025 [facility] #43711, [address] [place], [place], [id number], 12/13/2024 14:33:58 atorvasta tin 10 mg tablet 2024 025 [facility] #80137, [address] [place], [place], [id number], 12/13/2024 14:33:53 albuterol sulfate HFA 90 mcg/actua tion aerosol inhaler 2024 025 [facility] #63564, [address] [place], [place], [id number], 12/13/2024 14:33:46 albuterol sulfate HFA 90 mcg/actua tion aerosol inhaler 2023 024 [facility] #09680, [address] [place], [place], [id number], 07/27/2024 14:53:29 hydroxyzi ne HCl 25 mg tablet 2023 024 [facility] #62158, [address] [place], [place], [id number], 06/21/2024 15:47:28 hydroxyzi ne HCl 25 mg tablet 2023 024 [facility] #83007, [address] [place], [place], [id number], 12/08/2023 14:58:02 hydrocort isone 2.5 % topical cream with perineal applicato r [address] [facility]13997, [address] [place], [place], [id number], 07/27/2024 14:36:35 valacyclo vir 500 mg tablet [address] [facility] #76901, [address] [place], [place], [id number], 07/27/2024 14:36:53 hydroxyzi ne HCl 25 mg tablet 2022 023 [facility] #85623, [address] [place], [place], [id number], 06/02/2023 15:20:34 Medrol ([place]) 4 mg tablets in a dose pack 2022 023 [facility] #[id number] [place], [place], [id number], 12/13/2024 14:12:00 Patient TargetsNo targets recorded. Patient Instructions Encounter Date Encounter Id Patient Instructions Last Modified By Organization Details Last Modified Time 12/08/2023 [id number] Follow up as needed. Medications reordered Hydroxyzine increased to 3 tablets at night as needed for sleep for insomnia. Obtain labs ordered Call office for any questions concerns Not available 12/08/2023 14:57:26 06/21/2024 [id number] Follow up in 6 months Obtain labs Tests: Referral: Recommend: Influenza vaccine Tetanus vaccine Shingles vaccine Not available 06/19/2024 22:01:20 07/27/2024 [id number] complete PFT w/ post bronchodilator spirometry* - Please call patient to schedule. NPAN [id number] for [facility], ref #[id number]. NPAN [id number] for [facility]. ATHENAFAX Not available 12/28/2024 08:25:25 12/13/2024 [id number] Follow up in 6 months Tests: Complete cologuard Referral: Recommend: Pneumococcal vaccine Tetanus vaccine Shingles vaccine Not available 12/13/2024 14:33:37 Reason for Referral None Reported. Results Created Date Observation Date Name Description Value Unit Range Abnormal Flag Note LastModifiedBy Organization Detail LastModifiedTime 12/16/19 24 12/15/2023 CT, chest , w/o contr ast No observ ation record ed. [address] [place], [address], 06/21/2024 19:44:59 Result Notes None recorded. Problems Name Problem SNOMED Code Status Onset Date Resolution Date Notes Provider Name and Address Organization Details Recorded Time COVID-19 676294520 Active 2021 Not Available [facility] 3 01:43:36 Ex-smoker 0291254 Active 2022 Kinga Tidwell APRN [address] [facility], [address], [address] , [employer] 4 15:46:21 Anxiety 76001454 Active 2022 Kinga Tidwell APRN [address] [address], [place], [address] , [employer] 4 14:38:51 Hemorrhoid s 88251911 Active 2022 Not Available [employer] 3 01:43:36 Genital herpes simplex 29342003 Active 2022 Kinga Tidwell APRN [address] [facility], [address] [address], [place], [address] , [employer] 5 14:27:11 Atelectasi s 21169157 Active 2022 Not Available [employer] 3 01:43:36 Multiple nodules of lung 952942047 Active 2022 Kinga Tidwell APRN [address], [address] [facility], [place], [address] , [facility] 5 14:27:20 Bilateral carpal tunnel syndrome 1379227373210 9101 Active 2022 Kinga Tidwell APRN [address], [address] [address], [place], [address] , [facility] 4 14:38:55 Mild chronic obstructiv e pulmonary disease 080807687 Active 2023 Kinga Tidwell APRN [address], [address] [address], [place], [address] , [facility] 5 14:27:15 Hyperlipid emia 39421755 Active 2023 Kinga Tidwell APRN [address], [address] [address], [place], [address] , [facility] 4 13:42:17 Prediabete s 040707139 Active 2023 Kinga Tidwell APRN [address], [address] [address], [place], [address] , [facility] 4 13:42:59 Upper respirator y infection 08111022 Active 2023 Kinga Tidwell APRN [address], [address] [address], [place], [address] , [facility] 4 10:59:16 Notes:Medical History: Anxie ty COVID infection 09/2022 Rhinitis to multiple environmental allergens IgE 22 IU/mL Eosinophils 120/uL AAT PiMM 214 mg% Nicotine use Mild COPD Left apical calcified granuloma Bilateral pulm nodules Bibasilar atelectasis Hepatic cysts Hemorrhoids Left renal calculi HSV-2 infection Osteopenia Thoracic DDD Procedure History: JAN lung biopsy 2018 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 Procedures Surgical History Date Name Laterality Status Provider Name and Address Organization Details Recorded Time 5 Hysterectomy completed Not Available [facility] 023 18:56:09 Imaging Results Imaging Date Name Status LastModified by Organiz ation Details LastModified Time 12/15/2023 CT, chest, w/o contrast completed [email or web address] [facility] [address] [facility], [place], [address], 06/21/2024 19:44:59 Procedure Notes None recorded. Medical Equipment None Reported. Allergies Allergen ID Allergen Name Allergen Category Reaction Reaction Severity Criticality Documentation Date Start Date Code Code System Note Provider Name and Address Organization Details Recorded Time 83197 No known allergy (situatio n) Not available Not available Not available Not available 05/18/2024 [id number] SNMANPREET Tidwell APRN [address] [facility], [facility] [address], [place], [address] , [facility] [employer] 4 14:44:51 No known drug allergies Medications Name Sig Start Date Stop Date Status Note LastModified by Organization Details LastModified Time bupropion HCl SR 150 mg tablet,12 hr sustained-r elease TK 1 T PO D FOR 3 DAYS THEN BID THEREAFTE R 04/01 completed Not Available Not Available Not Available nystatin 100,000 unit/mL oral suspension SHAKE LIQUID WELL 5ML BY MOUTH FOR LONG POSSIBLE AND THEN SWALLOW FOUR TIMES DAILY FOR 7 DAYS 01/21 completed Not Available Not Available Not Available acetaminoph en 325 mg tablet 650 mg by oral route. 01/17 completed Not Available Not Available Not Available prednisone 10 mg tablet TAKE 1 TABLET BY MOUTH TWICE DAILY 12/07 completed Not Available Not Available Not Available nicotine 14 mg/24 hr daily transdermal patch APPLY 1 PATCH EVERY DAY 03/17 completed Not Available Not Available Not Available ipratropium 0.5 mg-albutero l 3 mg (2.5 mg base)/3 mL nebulizatio n soln USE 1 VIAL PER NEBULIZER FOUR TIMES DAILY 02/28 completed Not Available Not Available Not Available albuterol sulfate 2.5 mg/3 mL (0.083 %) solution for nebulizatio n 2.5 mg by inhalatio n route. 01/16 completed Not Available Not Available Not Available trazodone 50 mg tablet 50 mg by oral route. 01/17 completed Not Available Not Available Not Available atorvastati n 10 mg tablet Take 1 tablet every day by oral route as directed, for hyperlipi demia. 2024 active Not Available Not Available Not Avai lable azithromyci n 250 mg tablet TAKE 2 TABLET NOW AND 1 TABLET ON DAYS 2-5. active Not Available Not Available No t Available fluconazole 150 mg tablet take 1 tab PO x 1, may repeat dose in 3 days if no relief 02/28 completed Not Available Not Available Not Available benzonatate 200 mg capsule TAKE 1 CAPSULE BY MOUTH THREE TIMES DAILY active Not Available Not Available No t Available clonazepam 0.5 mg tablet TK 1 T PO BID 03/26 completed Not Available Not Available Not Available Anucort-HC 25 mg suppository INSERT 1 SUP RECTALLY BID PRN FOR 12 DAYS 11/06 completed Not Available Not Available Not Available moxifloxaci n 400 mg tablet TAKE 1 TABLET BY MOUTH EVERY DAY 01/21 completed Not Available Not Available Not Available hydroxyzine HCl 50 mg tablet 1 tablet at bedtime as needed for sleep active Not Available Not Available No t Available estradiol 0.05 mg/24 hr semiweekly transdermal patch APPLY ONE PATCH AA TWICE A WEEK 03/26 completed Not Available Not Available Not Available valacyclovi r 500 mg tablet Take 1 tablet twice a day by oral route for 7 days. 2024 active Not Available Not Available Not Avai lable ciprofloxac in 500 mg tablet TK 1 T PO Q 12 H FOR 7 DAYS 11/06 completed Not Available Not Available Not Available sulfamethox azole 800 mg-trimetho prim 160 mg tablet TAKE 1 TABLET BY MOUTH EVERY 12 HOURS FOR 5 DAYS DIRECTED 08/21 completed Not Available Not Available Not Available acyclovir 800 mg tablet TK 1 T PO QD 03/26 completed Not Available Not Available Not Available hydrocortis one 2.5 % topical cream with perineal applicator APPLY THIN LAYER TOPICALLY TO THE AFFECTED AREA 2 TO 4 TIMES DAILY NEEDED active Not Available Not Available No t Available ceftriaxone 1 gram solution for injection 1000 mg by injection route. 01/16 completed Not Available Not Available Not Available lorazepam 0.5 mg tablet TAKE TWO TS PO TID 04/01 completed Not Available Not Available Not Available phenazopyri dine 100 mg tablet TAKE 1 TABLET BY MOUTH THREE TIMES DAILY FOR 5 DAYS NEEDED 12/13 completed Not Available Not Available Not Available benzonatate 100 mg capsule TAKE 1 CAPSULE BY MOUTH THREE TIMES DAILY NEEDED 12/07 completed Not Available Not Available Not Available bisacodyl 10 mg rectal suppository INSERT 1 SUPPOSITO RY QD PRN 04/21 completed Not Available Not Available Not Available oseltamivir 75 mg capsule TAKE 1 CAPSULE BY MOUTH TWICE DAILY 01/21 completed Not Available Not Available Not Available buspirone 10 mg tablet TK 1 T PO BID 04/01 completed Not Available Not Available Not Available nicotine 21 mg/24 hr daily transdermal patch APPLY 1 NEW PATCH TO SKIN ONCE DAILY 01/21 completed Not Available Not Available Not Available azithromyci n 500 mg intravenous solution 500 mg by intraven. route. 01/16 completed Not Available Not Available Not Available buspirone 7.5 mg tablet Take 1 tablet twice a day by oral route for 30 days. active Not Available Not Available No t Available budesonide 0.5 mg/2 mL suspension for nebulizatio n USE 1 VIA PER NEBULIZER TWICE DAILY 01/21 completed Not Available Not Available Not Available hydrocortis one 2.5 % topical cream APPLY A THIN LAYER TO THE AFFECTED AREA BID FOR 7 DAYS 11/06 completed Not Available Not Available Not Available hydroxyzine HCl 25 mg tablet TAKE 3 TABLETS BY MOUTH AT BEDTIME NEEDED active Not Available Not Available No t Available sodium chloride 0.9 % intravenous solution 50 mL by intraven. route. 01/16 completed Not Available Not Available Not Available methylpredn isolone 4 mg tablets in a dose pack Take 1 dose pk every day by oral route as directed. 12/13 completed Not Available Not Available Not Available albuterol sulfate HFA 90 mcg/actuati on aerosol inhaler INHALE 1 PUFF BY MOUTH EVERY 4 HOURS NEEDED active Not Available Not Available No t Available sertraline 50 mg tablet TK 1 T PO QD 03/26 completed Not Available Not Available Not Available hydrocortis one-pramoxi ne 1 %-1 % rectal cream INSERT 1 GRAM AA OF THE RECTUM PRN BID 04/21 completed Not Available Not Available Not Available amoxicillin 875 mg-potassiu m clavulanate 125 mg tablet TAKE 1 TABLET BY MOUTH TWICE DAILY 08/21 completed Not Available Not Available Not Available enoxaparin 40 mg/0.4 mL subcutaneou s syringe 40 mg by sub-q route. 01/17 completed Not Available Not Available Not Available escitalopra m 10 mg tablet Take 1 tablet every day by oral route. 04/15 completed Not Available Not Available Not Available Martina-BE 0.35 mg tablet TK 1 T PO QD 04/01 completed Not Available Not Available Not Available escitalopra m 5 mg tablet Take 1 tablet every day by oral route. 10/22 completed Not Available Not Available Not Available Lunesta 1 mg tablet Take 2 tablets every day by oral route. 04/01 completed Not Available Not Available Not Available sodium chloride 0.9 % intravenous piggyback 50 mL by intraven. route. 01/16 completed Not Available Not Available Not Available varenicline tartrate 1 mg tablet TAKE 1 TABLET BY MOUTH TWICE DAILY. START THE WEEK AFTER THE 0.5 MG TABLETS active Not Available Not Available No t Available varenicline tartrate 0.5 mg tablet Start with 1 tab qd x3 days, then 1 tab PO bid x4 days, stop smoking 1 week after starting active Not Available Not Available No t Available ondansetron HCl (PF) 4 mg/2 mL injection solution 4 mg by injection route. 01/17 completed Not Available Not Available Not Available melatonin 5 mg tablet Take 2 tablets every day by oral route. 11/06 completed Not Available Not Available Not Available Solu-Medrol (PF) 40 mg/mL solution for injection 40 mg by injection route. 01/16 completed Not Available Not Available Not Available Vios Aerosol Delivery System USE DIRECTED FOR COPD 01/21 completed Not Available Not Available Not Available potassium chloride ER 20 mEq tablet,exte nded release Take 1 tablet every day by oral route for 5 days. active Not Available Not Available No t Available Compact Space Chamber USE WITH INHALER 01/13 completed Not Available Not Available Not Available Trulance 3 mg tablet 12/07 completed Not Available Not Available Not Available Lorinztri Aerosphere 160 mcg-9mcg-4. 8mcg/actuat ion HFA aerosol inhaler Inhale 2 pufs by inhalatio n route. 06/21 completed Not Available Not Available Not Available Paxlovid 300 mg (150 mg x 2)-100 mg tablets in a dose pack TK 2 NIRMATREL VIR TS AND 1 RITONAVIR T TOGETHER PO BID FOR 5 DAYS TWICE DAILY FOR 5 DAYS 01/21 completed Not Available Not Available Not Available Vitals Date Recorded Body height Body mass index (BMI) Body weight Body temperature Heart rate Oxygen saturation Oxygen saturation in Arterial blood by Pulse oximetry Systolic blood pressure Diastolic blood pressure Provider Name and Address Organization Details Last Updated DateTime 3 162.56 cm 17.7 kg/m2 82709.0 1 g 98.8 [degF] 84 /min 98 % 98 % 116 mm[Hg] 72 mm[Hg] Nini Carney MA [employer] 3 14:57:01 Date Recorded Body height Body mass index (BMI) Body weight Oxygen saturation Oxygen saturation in Arterial blood by Pulse oximetry Heart rate Body temperature Systolic blood pressure Diastolic blood pressure Provider Name and Address Organization Details Last Updated DateTime 4 162.56 cm 19.9 kg/m2 72697.7 1 g 98 % 98 % 108 /min 97.6 [degF] 126 mm[Hg] 80 mm[Hg] Vicki Thibodeaux CMA [employer] 4 14:30:06 Date Recorded Body height Body mass index (BMI) Body weight Body temperature Heart rate Oxygen saturation Oxygen saturation in Arterial blood by Pulse oximetry Systolic blood pressure Diastolic blood pressure Provider Name and Address Organization Details Last Updated DateTime 4 162.56 cm 20.3 kg/m2 48498.9 g 98.2 [degF] 93 /min 96 % 96 % 120 mm[Hg] 72 mm[Hg] Jesica Grewal MA [facility] [employer] 4 15:20:58 Date Recorded Body height Body mass index (BMI) Body weight Heart rate Oxygen saturation Oxygen saturation in Arterial blood by Pulse oximetry Body temperature Systolic blood pressure Diastolic blood pressure Provider Name and Address Organization Details Last Updated DateTime 4 162.56 cm 21.1 kg/m2 84807.8 6 g 85 /min 97 % 97 % 98.3 [degF] 122 mm[Hg] 70 mm[Hg] Vicki Thibodeaux CMA [facility] [employer] [facility] 4 14:35:03 Date Recorded Heart rate Respiratory rate Provider N [place] and Address Organization Details Last Updated DateTime 07/27/2024 85 /min 14 /min Ricardo Gottlieb MD [address] [place] [address], [id number], [facility] [employer] 07/27/2024 14:55:28 Date Recorded Body height Body mass index (BMI) Body weight Body temperature Heart rate Oxygen saturation Oxygen saturation in Arterial blood by Pulse oximetry Pain severity - 0-10 verbal numeric rating [Score] - Reported Systolic blood pressure Diastolic blood pressure Provider Name and Address Organization Details Last Updated DateTime 5 162.56 cm 21.1 kg/m2 52616.8 6 g 98.2 [degF] 77 /min 97 % 97 % 0 118 mm[Hg] 74 mm[Hg] Jesica Grewal MA [facility] [employer] 5 14:10:30 Social History Question Answer Notes LastModified by Organizat ion Details LastModified Time Tobacco Smoking Status Former Smoker Quit 01/16/23 Dulce Reyes MA null, [facility] [employer] 01/21/2023 15:10:14 What Is Your Level Of Alcohol Consumption? Occasional [id number] Information not available 12/04/2022 What Is Your Level Of Caffeine Consumption? Heavy MIGRATION. Information not available 12/04/2022 In The 14 Days Before Symptom Onset, Have You Had Close Contact With A Laboratory-confir med COVID-19 While That Case Was Ill? No MIGRATION. Information not available 12/04/2022 In The 14 Days Before Symptom Onset, Have You Had Close Contact With A Person Who Is Under Investigation For COVID-19 While That Person Was Ill? No [id number] Information not available 12/04/2022 Are You Currently Employed? No Information not available 06/21/2024 What Type Of Diet Are You Following? REGULAR MIGRATION.[id number] Information not available 12/04/2022 What Is The Highest Grade Or Level Of School You Have Completed Or The Highest Degree You Have Received? [id number] MIGRATION.12673 61227 Information not available 12/04/2022 Do You Have An Electrostatic Air Filter? No Information not available 01/21/2023 Have There Been Any Changes To Your Family Or Social Situation? No MIGRATION.32800 [id number] Information not available 12/04/2022 What Is The Fluoride Status Of Your Home? Unknown MIGRATION.89104 64675 Information not available 12/04/2022 When Did You Quit Smoking? 1-6yearssinrashad yo Information not available 12/27/2024 Are There Any Guns Present In Your Home? No MIGRATION.08424 35368 Information not available 12/04/2022 Do You Have A Humidifier? No Information not available 01/21/2023 Do You Use Insect Repellent Routinely? No MIGRATION.04033 43730 Information not available 12/04/2022 Where Do You Live? Apartment MIGRATION.86622 39474 Information not available 12/04/2022 Do You Have Moisture Problems In Your Home? No Information not available 01/21/2023 What Was The Date Of Your Most Recent Tobacco Screening? 12/13/2024 Information not available 12/13/2024 How Many Children Do You Have? 2 Information not available 06/21/2024 Do You Have Any Pets? Yes MIGRATION.32892 50252 Information not available 12/04/2022 What Is Your Relationship Status? MIGRATION.46600 72308 Information not available 12/04/2022 Do You Use Your Seat Belt Or Car Seat Routinely? Yes MIGRATION.57874 11545 Information not available 12/04/2022 Do You Have Smoke And Carbon Monoxide Detectors In Your Home? Yes MIGRATION.67060 29679 Information not available 12/04/2022 At What Age Did You Start Smoking Tobacco? 16 Information not available 12/27/2024 Are You Passively Exposed To Smoke? Yes MIGRATION.73659 37441 Information not available 12/04/2022 Are There Any Smokers In Your House? Yes MIGRATION.73572 45129 Information not available 12/04/2022 How Much Tobacco Do You Smoke? No Was 1.5ppd Information not available 12/27/2024 Do You Feel Stressed (tense, Restless, Nervous, Or Anxious, Or Unable To Sleep At Night)? [id number] MIGRATION.38567 14590 Information not available 12/04/2022 Do You Use Any Illicit Or Recreational Drugs? No MIGRATION.83822 03456 Information not available 12/04/2022 Do You Use Sunscreen Routinely? Yes MIGRATION.91427 09343 Information not available 12/04/2022 Have You Recently Traveled Abroad? No MIGRATION.63027 13842 Information not available 12/04/2022 Do You Have Any Dietary Restrictions? No MIGRATION.53228 09073 Information not available 12/04/2022 Do You Or Have You Ever Used Any Other Forms Of Tobacco Or Nicotine? No Information not available 06/21/2024 Sex: Unknown Functional Status Question Answer Note LastModified by Organizat ion Details LastModified Time What is your exercise level? Occasional [id number] Information not available 12/04/2022 Mental Status None recorded. Family History Relationship Description Onset Age of this Age Resolved Age Notes LastModified by Organization Details LastModified Time Father Malignant tumor of lung [id number] Not available 12/04/2022 18:56:10 Mother Malignant tumor of lung MIGRATION.[id number] Not available 12/04/2022 18:56:10 Medical History Condition Response NERVE DISEASE N BLINDNESS N RHEUMATIC FEVER N KIDNEY STONES N BLADDER PROBLEMS N MRSA N OTHER # 1 N POLIO N LUNG DISEASE/DISORDER N HISTORY OF DRUG ABUSE N RADIATION / CHEMOTHERAPY N COPD Y Other # 2 N BLOOD DISEASES N EAR OR HEARING PROBLEMS N MUMPS N SHINGLES N DEPRESSION (INCLUDING POST ) N BOWEL PROBLEMS N STROKE/TIA N ULCERS N BENIGN PROSTATIC HYPERPLASIA N MEASLES N HYPOTENSION N MYOCARDIAL INFARCTION N OBESITY N GERD/NAUSEA N ANEURYSM N URINARY/BLADDER/KIDNEY PROBLEMS N CORONARY ARTERY DISEASE (CAD) N ADDICTION CONCERNS N Impotence N ENDOMETRIOSIS N USE OF BLOOD THINNERS N SKIN PROBLEMS N GASTROINTESTINAL DISORDER N PERIPHERAL VASCULAR DISEASE N MUSCLE,JOINT OR BONE PROBLEMS N GASTROINTESTINAL BLEEDING N BLOOD CLOTS N ASTHMA N CATARACTS N ERECTILE DYSFUNCTION N VARICOSITIES N GI PROBLEMS N Low Testosterone N INFERTILITY N AIDS/HIV N CHEMOTHERAPY / RADIATION N LIVER DISEASE N MALE HYPOGONADISM N HYPERTENSION N Deficiency N TOURETTE'S N ANXIETY DISORDER N BLOOD TRANSFUSION N ANEMIA/BLOOD DISORDER N CHRONIC EAR INFECTIONS N BRONCHITIS N TUBERCULOSIS N GLAUCOMA N FOOT PROBLEM N DIVERTICULITIS N SLEEP APNEA N CHICKENPOX N INFECTIOUS DISEASE N PROSTATE N HEART ARRHYTHMIA N INSOMNIA N HIGH CHOLESTEROL / HYPERLIPIDEMIA N HYPERTHYROIDISM N EYE PROBLEMS N EDEMA N CHRONIC PAIN SYNDROME N HYPOTHYROIDISM N CONSTIPATION N CAROTID BLOCKAGE N BACK / NECK PROBLEMS N HAVE YOU BEEN HOSPITALIZED OR SEEN IN [facility] IN THE PAST YEAR ? N ATHEROSCLEROSIS N BREAST PROBLEMS N DIALYSIS N ECZEMA N OSTEOPOROSIS N ARTHRITIS N NO SIGNIFICANT PAST MEDICAL HISTORY N APPENDICITIS N DIABETES, TYPE N BAD TEETH N ENT N HEARTBURN / REFLUX N AUTISM SPECTRUM DISORDER (ASD) N HEPATITIS / LIVER DISEASE N GOUT N SLEEP DISORDER N ALZHEIMER'S DISEASE N Brain Problems N HERPES N DEMENTIA N SEIZURES/EPILEPSY N HEADACHES/MIGRAINES N VASCULAR DISEASE N PACEMAKER N Blood Disorder N DIZZINESS N KIDNEY DISEASE N HEART DISEASE/HEART PROBLEMS N MULTIPLE SCLEROSIS N CARDIAC ARRHYTHMIA N CANCER: SPECIFY N Gall Stones N ATRIAL FIBRILLATION N PULMONARY EMBOLISM N AUTOIMMUNE DISEASE N Gynecological History Statement/Question Response How many live births 2 Date of Last Colonoscopy Date of Last Mammogram Date of LMP Most Recent Bone Density Date of Last Pap Current Control Method Hysterectom y Obstetrics History GPAL:G 5 P 2 0 3 2 Type Value Multiple Births 0 Full Term 2 Induced 0 Spontaneous 3 Premature 0 Living 2 Ectopics 0 Total 5 Past Encounters Encounter ID Performer Location Encounter Start Date Encounter Closed Date Diagnosis/Indication Diagnosis SNOMED-CT Code Diagnosis ICD10 Code Diagnosis Note [id number] [facility] [address] [facility], [address] [address] 11/06/2021 00:00:00 11/06/2021 21:44:14 [id number] [facility] [address] [place] [address] 12/07/2021 00:00:00 12/07/2021 16:44:46 [id number] [facility] Internal [facility] [address] [place] [address]., [address] [address] 01/07/2022 00:00:00 01/07/2022 15:39:46 [id number] [facility] Med [facility] [address] [place] [address], [address] [address] 02/11/2022 00:00:00 02/11/2022 15:29:06 [id number] [facility] [address] [address] 04/15/2022 00:00:00 04/15/2022 17:30:07 [id number] [facility] [address], [place] [address] 1 10/22/2022 00:00:00 10/22/2022 14:45:08 [id number] Ricardo Gottlieb MD [facility] Pul[facility]olo [facility] [address] [place] [address] 01/21/2023 14:39:46 01/22/2023 08:28:18 Dyspnea on exertion 62227328 R06.09 R05.9 T78.40XA D89.9 Ex-smoker 6395457 Z87.89 1 F17.218 F17.219 [id number] SHOAIB Larose [facility] [address], [address] [address] 01/27/2023 14:14:16 01/27/2023 14:37:25 Anxiety 51383913 F41.9 on lexapro, she is aware of side effects, risks, benefitsca ll office if any change in mood or behaviorsh e declines psychiatry referral Nicotine dependence 5629 4008 F17.200 wellbutrin didn't work for herinsuran ce wouldn't pay for sandrinexsydni ts to go down to 14mg patch3 minutes spent with patient discussing risks, cessation options. Patient encouraged to quit. Hemorrhoids 56042681 K64 .9 on anusollife style measures discussedn ow following GI-Dr. Nava see [facility] (had wanted female provider) but wants to see a different GS nowsecond opinion for GS per her request- has referral to [facility] lottie Severe chr onic obstructive pulmonary disease 799856343 J44.9 on Bretzri, albuterol prnshe is aware to rinse and spit after usenow following pulm- Dr. Baker upcoming testing Multiple n odules of lung 989562791 R91.[address] chest 11/2021, severe emphysema Genital he rpes simplex 83297143 A60.9 valtrex prn for outbreaks Screening for malignant neoplasm of colon 099128677 Z12.11 Pt refuses screening colonoscop y but agrees to Cologuard. All risks explained to her, including that Cologuard may miss 8% of cancers. Insomnia 728075844 G47.0 0 Restart hydroxyzin e-she is aware of side effects, risks, benefits No alcohol, driving, or mixing with the sedating medication scall office if no improvemen t with meds Vaginitis 73027195 N76.0 Start fluconazol e Call office if no improvemen t after meds Pneumonia 083095394 J18. 9 now feeling much better since hospital dischargeh as upcoming testing ordered by pulmonolog y [id number] Ricardo Gottlieb MD [facility] [place] [address] [address] 03/17/2023 15:44:10 03/17/2023 16:38:55 Ex-smoker 0832387 Z87.891 F17.218 F17.219 Bilateral pneumonia 4076 72776 J18.9 Atelectasis 36485249 J98 .11 Mild chron ic obstructive pulmonary disease 239029890 J44.9 [id number] Ricardo Gottlieb MD [facility] [place] [address] [address] 04/14/2023 14:22:06 04/15/2023 08:51:32 Ex-smoker 7700164 Z87.891 F17.218 F17.219 Bilateral pneumonia 4076 40831 J18.9 Atelectasis 20366631 J98 .11 Mild chron ic obstructive pulmonary disease 595987268 J44.9 [id number] SHOAIB Larose [facility] Internal Med [facility] [address] [facility] [address] [place] [address] 06/02/2023 14:49:34 06/02/2023 15:23:26 Anxiety 62825519 F41.9 She self stopped the Lexapro, is stable currently off of medscall office if any change in mood or behaviorsh e declines psychiatry referral Hemorrhoids 65630988 K64 .9 on anusollife style measures discussedn ow following GI-Dr. Nava see [facility] (had wanted female provider) but wants to see a different GS nowsecond opinion for GS per her request- has referral to [facility] lottie Severe chr onic obstructive pulmonary disease 764355264 J44.9 on albuterol prnno longer needing the Breztri since she quit smokingnow following pulm- Dr. Baker upcoming testing Multiple n odules of lung 040540781 R91.[address] chest 11/2021, severe emphysema Genital he rpes simplex 89038997 A60.9 valtrex prn for outbreaks Screening for malignant neoplasm of colon 675720635 Z12.11 Pt refuses screening colonoscop y but agrees to Cologuard. All risks explained to her, including that Cologuard may miss 8% of cancers.- has order, encouraged her to complete Insomnia 203241498 G47.0 0 Restart hydroxyzin e-she is aware of side effects, risks, benefitsNo alcohol, driving, or mixing with the sedating medication scall office if no improvemen t with meds Bilateral carpal tunnel syndrome 7732245194 2869814 G56.03 Recommend she get carpal tunnel braces on [employer] t Medrol DosepakGet x-raysShe declines ortho referral if she wants to avoid shots or surgeries at this timeCall office if no improvemen t after bracing and Medrol Dosepak Pain of bi lateral hands 8081655179 5621946 M79.641 M79.642 as above Ex-smoker 0280077 Z87.89 1 [id number] Kinga Tidwell APRN [facility] Internal Med [place] [address] [place] [address] 12/08/2023 14:16:49 12/08/2023 15:05:58 Bilateral carpal tunnel syndrome [id number] 2872271 G56.03 Brace Insomnia 711765720 G47.0 0 Genital he rpes simplex 54645774 A60.9 Hemorrhoids 95902445 K64 .9 Diabetes m ellitus screening 677673562 Z13.1 Hyperlipid emia screening 575364229 Z13.220 Screening for disorder 122155679 Z13.9 Thyroid di sorder screening 145546066 Z13.29 [id number] Kinga Tidwell APRN [facility] Internal Med [facility] [address] [place], [place] [address] 06/21/2024 15:06:19 06/21/2024 15:50:09 Screening mammography 28918507 Z12.31 Screening for malignant neoplasm of colon 963717693 Z12.11 Diabetes m ellitus screening 253499521 Z13.1 Hyperlipid emia screening 755013286 Z13.220 Screening for disorder 927409404 Z13.9 Thyroid di sorder screening 738779206 Z13.29 Hepatitis C screening 41 6452593 Z11.59 Insomnia 501106128 G47.0 [id number] [facility] [place] [address] [place] [address] 07/27/2024 14:22:29 07/27/2024 15:54:02 Ex-smoker 2393060 Z87.891 F17.218 F17.219 Atelectasis 26511688 J98 .11 Mild chron ic obstructive pulmonary disease 291376964 J44.9 [id number] Kinga Tidwell APRN [facility] Internal Med [facility] [address] [address] 12/13/2024 13:59:58 12/13/2024 14:37:36 Mild chronic obstructive pulmonary disease 458121963 J44.9 Hyperlipidemia 08700197 E78.5 Insomnia 253830223 G47.0 0 Hemorrhoids 08185774 K64 .9 Genital he rpes simplex 24854090 A60.9 Health Concerns Section Related Observation LastModified by Organization Detai ls LastModified Time None Recorded Concern Status LastModified by Organization Details LastModified Time None Recorded Advance Directives Directive None Recorded Payers Encounter Date Sequence Insurance Name Policy Number Policy Truong Covered Member ID Truong Member ID Guarantor Name 06/02/2023 1 [employer] - [facility] - CHOICE PLUS (PPO) [id number] Levon Petty [id number] Janice A 06/02/2023 2 [facility] AFTER 04/05/21 (MEDICAID REPLACEMENT - HMO) Janice [id number] Janice A 12/08/2023 2 [facility] AFTER 04/05/21 (MEDICAID REPLACEMENT - HMO) Janice [id number] Janice A 12/08/2023 1 [facility] [id number] Janice A [id number] Janice A 06/21/2024 2 [facility] ON [facility] AFTER 04/05/21 (MEDICAID REPLACEMENT - HMO) Janice [id number] Janice A 06/21/2024 1 [facility] [id number] Janice A [id number] Janice A 07/27/2024 2 [facility] - DOS ON OR AFTER 21 (MEDICAID REPLACEMENT - HMO) Janice Mccormack [id number] Janice A 07/27/2024 1 [facility] [id number] Janice A [id number] Janice A 12/13/2024 1 [facility] [id number] Janice A [id number] Janice A Notes Date Note Type Note Provider Name and Address Organization Details Recorded Time 06/02/2023 text/html Janice presents today for follow-up. She continues to be smoke free. She is no longer even using the nicotine patches. She reports her breathing is much better since she quit smoking. She is now off the Breztri is only taking the albuterol p.r.n.. Her anxiety is stable off of the Lexapro. She denies any SI or HI today. She is using hydroxyzine p.r.n. for insomnia, which is working well for her. She complains today of bilateral numbness and tingling and pain in her hands and wrist. The left is worse than the right. Sometimes the pain and tingling will wake her up during the night. She is also having a little bit of weakness and dropping things on the left. She is not currently wearing any sort of carpal tunnel brace. She tells me she would like to avoid any shots or surgeries if possible. CIELO Larose-Nia [address], [address], [place], [address], [employer] [facility] [email or web address] 06/02/2023 15:55:20 12/08/2023 text/html 12/08/2023Janice presents today to establish care and medication refill. She states that she had an outbreak of herpes simplex about a month ago. Anxiety is under control without medications. She does state that she has difficult sleeping. 06/02/2023rigoberto presents today for follow-up. She continues to be smoke free. She is no longer even using the nicotine patches. She reports her breathing is much better since she quit smoking. She is now off the Breztri is only taking the albuterol p.r.n.. Her anxiety is stable off of the Lexapro. She denies any SI or HI today. She is using hydroxyzine p.r.n. for insomnia, which is working well for her. She complains today of bilateral numbness and tingling and pain in her hands and wrist. The left is worse than the right. Sometimes the pain and tingling will wake her up during the night. She is also having a little bit of weakness and dropping things on the left. She is not currently wearing any sort of carpal tunnel brace. She tells me she would like to avoid any shots or surgeries if possible. Kinga Tidwell APRN [address], [address], [place], [address], [employer] 12/08/2023 14:57:49 06/21/2024 text/html Janice presents today for 6 month follow up. She denies any illness or injuries since previous visit. She admits that she did not get her labs done after the previous visit and asked for them to be reordered. 12/08/2023Janice presents today to establish care and medication refill. She states that she had an outbreak of herpes simplex about a month ago. Anxiety is under control without medications. She does state that she has difficult sleeping. 06/02/2023rigoberto presents today for follow-up. She continues to be smoke free. She is no longer even using the nicotine patches. She reports her breathing is much better since she quit smoking. She is now off the Breztri is only taking the albuterol p.r.n.. Her anxiety is stable off of the Lexapro. She denies any SI or HI today. She is using hydroxyzine p.r.n. for insomnia, which is working well for her. She complains today of bilateral numbness and tingling and pain in her hands and wrist. The left is worse than the right. Sometimes the pain and tingling will wake her up during the night. She is also having a little bit of weakness and dropping things on the left. She is not currently wearing any sort of carpal tunnel brace. She tells me she would like to avoid any shots or surgeries if possible. Kinga Tidwell APRN [address] [place] [address], [place], [address], [place] [facility] 06/21/2024 15:47:50 07/27/2024 text/html Primary care/Ref erring provider: Kinga Tidwell APRN Patient is here to go over her chest CT as part of her nodular infiltrates and COPD management. Initial development of shortness of breath: 2Duration of shortness of breath: 2 yearsCondition of shortness of breath: stableTiming of shortness of breath: eveningFrequency: up to 5 times a dayLimits activities: yesAggravating factors: walking, doing laundry, bending over, sweeping, mopping, vacuuming, going up stepsAlleviating factors: rest Modified [employer] [place] (mMRC) Dyspnea Scale - Grade 1Grade 0 I only get breathless with strenuous exercise .Grade 1 I get short of breath when hurrying on the level or walking up a slight hill .Grade 2 I walk slower than people of the same age on the level because of breathlessness or have to stop for breath when walking at my own pace on the level .Grade 3 I stop for breath after walking about 100 yards or after a few minutes on the level .Grade 4 I am too breathless to leave the house or I am breathless when dressing . Treatment history: Albuterol HFA as needed since 11/2021 Breztri 160/9/4.8 mcg 2 puffs BID since 12/2021 Other symptoms:Drooling: noDysarthria: noNeck pain: noOdynophagia: noDysphagia: noWeak mastication: noFacial weakness: noNasal speech: noProtruding tongue: noProductive cough: clearWheezing: yesChest tightness: yesOrthopnea: noFrequent throat clearing or swallowing: noPalpitations: noHeartburn: noEdema: no Environmental exposures:Nicotine smoke: 1.5 ppd [phone] = 52.5 pack yearsPaint: noDye: noDust mites: yesMold: noDamp basement: yesWood burning stove: noAnimal dander: cat and dogCockroaches: noPollen: yesArsenic: noAsbestos: noBeryllium: noCadmium: noChromium: noCoal smoke: noDiesel fumes: noNickel: noSilica: noSoot: no EPWORTH SLEEPINESS SCALE (ESS) CHANCE OF DOZING SCORE0 = would never doze1 = slight chance of dozing2 = moderate chance of dozing3 = high chance of dozing SITUATION AND CHANCE OF DOZINGSitting and reading - 0Watching television - 0Sitting inactive in a public place (e.g. a theater or meeting) - 0As a passenger in a car for an hour without a break - 0Lying down to rest in the afternoon when circumstances permit - 0Sitting and talking to someone - 0Sitting quietly after lunch without alcohol - 0In a car, while stopped for a few minutes in the traffic - 0TOTAL SCORE 0Subjectively, patient has no chance of dozing. Ricardo Gottlieb MD [address] [place] [address], [facility] [address], [place], [address], [place] [facility] [email or web address] 07/27/2024 14:55:38 12/13/2024 text/html Janice presents today for 6 month follow up. She denies any illness or injuries since previous visit. She states that she has a follow up with Dr. Gottlieb next month, she states that she has been using her inhaler more often lately. 06/21/2024Janice presents today for 6 month follow up. She denies any illness or injuries since previous visit. She admits that she did not get her labs done after the previous visit and asked for them to be reordered. 12/08/2023Janice presents today to establish care and medication refill. She states that she had an outbreak of herpes simplex about a month ago. Anxiety is under control without medications. She does state that she has difficult sleeping. Kinga Tidwell PRODUCT DEVELOPMENT MANAGER [address] [facility], [facility] [address], [place], [address], [place] [facility] [email or web address] 12/13/2024 14:36:06 OBGyn Episode No OBEpisode recorded.
--- NOTE | 2025-01-07 17:45 | WPDPFTINT ---
PFT Procedure Performed PFT Procedure Performed Spirometry with Pre/Post Bronchodilator Plethysmography (Lung Vol) Diffusing Cap (DLCO) Flow Vol Loop PFT Interpretation This is a pulmonary function test with pre and post-bronchodilator spirometry, plethysmography and diffusing capacity. The test was performed and results interpreted in accordance with the 2019 and 2005 ATS/ERS Task Force guidelines respectively using the Global Lung Function Initiative-2012 reference equations. Patient demonstrated good effort and cooperation. Reproducibility criteria were met. The quality of the pre bronchodilator spirometry maneuver was Grade A and post bronchodilator spirometry maneuver was Grade A. Findings: Spirometry: There is decreased maximal expiratory airflow at all lung volumes with a concave expiratory flow tracing. The contour the inspiratory flow tracing is normal. The pre bronchodilator FVC is 2.96 L, 95% predicted. The pre bronchodilator FEV1 is 1.66 L, 66% predicted. The pre bronchodilator FEV1: FVC ratio is 56%. The post bronchodilator FVC is 2.88 L, representing a 2% decrease. The post bronchodilator FEV1 is 1.75 L, representing a 5% increase. The post bronchodilator FEV1: FVC ratio 61%. Plethysmography: The total lung capacity is 5.01 L, 106% predicted. The functional residual capacity is 2.97 L, 113% predicted. The residual volume is 1.99 L, 115% predicted. Diffusing capacity: The diffusing capacity unadjusted for hemoglobin and carboxyhemoglobin is 9.1, 42% predicted. The diffusing capacity adjusted for alveolar volume is 2.33, 50% predicted. Impression: There is a moderate obstructive abnormality. There is no significant improvement after inhaling a single dose of albuterol. The lung volumes are normal. The diffusing capacity unadjusted for hemoglobin and carboxyhemoglobin is moderately decreased and remains moderately decreased when adjusted for alveolar volume. There are no prior studies for comparison
== END 2025-01-07 13:33 | disposition home or self-care (01) ==
PROVIDERS: Visit Provider Internal Medicine Pulmonary Disease
DX: J44.9 Chronic obstructive pulmonary disease, unspecified (principal); R94.2 Abnormal results of pulmonary function studies
CPT/HCPCS: 94060; 94726; 94729